=== PATIENT | male | born 2000 | race Two or more races ===

== ENCOUNTER → 2021-05-15 | Outpatient (CLI) | payer OTHER ==
[~2021-05-15] MED LIST: CEFPROZIL 250 MG PO; FLOVENT 110.088 GM/I INH; PREDNISONE10 M1 PO; PREDNISONE5 M1 PO; SINGULAIR10 MG PO; VENTOLIN HFA8 GM INH
== END ==
LOC: US 09:45
DX: E80.6 Other disorders of bilirubin metabolism (principal)
CPT/HCPCS: 76700